=== PATIENT | male | born 1960 | race Caucasian/White ===

== ENCOUNTER → 2022-07-01 | Day surgery (SDC) | payer BC ==
[2022-06-16 11:10] LABS: Absolute Lymphocytes (CBC) 1.5 K/uL (0.7-4.9); Hematocrit 33.6 % (39.6-49.0); Lymphocytes % 20.9 % (15.3-44.8); MCV 75.5 fL (80-100); MPV 7.6 fL (7.6-11.3); RBC Red Blood Cell Count 4.45 M/uL (4.33-5.43)
[2022-06-16 11:26] LABS: Potassium 4.4 mEq/L (3.5-5.1)
--- NOTE | 2022-06-16 12:11 | RAD REPORT ---
EXAM DESCRIPTION: Xochitl Dsouza (2 Views)06/16/2022 11:23 am CLINICAL HISTORY: Cough/renal cell carcinoma COMPARISON: May 2022 FINDINGS: The lungs appear clear of acute infiltrate. The heart is normal size IMPRESSION: No acute abnormalities displayed
[2022-06-16 12:32] LABS: Protime INR 1.1
--- NOTE | 2022-06-16 12:49 | EKG ---
Test Date: 2022-06-16 Test Time: 10:37:25 Assistant Cook: PIEDAD MEASUREMENT RESULTS: Intervals: Rate: 83 IN: 128 QRSD: 82 QT: 384 QTc: 451 [place]: P: 77 IN: 128 QRS: 46 T: 52 INTERPRETIVE STATEMENTS: Normal sinus rhythm Normal ECG No previous ECG available for comparison Electronically Signed On 06-16-22 12:49:02 CDT by Bert Copeland
[2022-06-30 08:16] LABS: SARS-CoV-2 Antigen Rapid Res Negative (Negative)
[~2022-07-01] MED LIST: ACETAMINOPHEN 500 MG TAB PO PRN; CEFAZOLIN SODIUM 1 GM/VIAL ONE; ESMOLOL HCL 10 ML IV ONE; FENTANYL CITR 250 MCG/5 ML ONE; FUROSEMIDE 40 MG/4 ML VIAL ONE; GLYCOPYRROLATE 0.2 MG/ML SYR ONE; KETAMINE HCL IN 0.9 % NACL 50 MG/5 ML SYRINGE IV ONE; LIDOCAINE 2% MPF 5 ML VIAL ONE; LIDOCAINE JELLY 2% 5 ML SYRINGE TOP ONE; MIDAZOLAM HCL 2 MG/2 ML INJ ONE; NEOSTIGMINE 1 MG/ML -10 ML VIAL ONE; ONDANSETRON 4 MG/2 ML VIAL ONE; PROMETHAZINE INJ 25 MG/ML AMP ONE; ROCURONIUM 50 MG/5 ML VIAL IV ONE; Ringers Lactate 1,000 ML IV ONE; TRAMADOL 37.5mg/APAP 325mg PER TAB PO ONE; VECURONIUM 10 MG/VIAL IV ONE; propofoL 200 MG/20 ML VIAL IV ONE
[2022-07-01] MEDS: HYDROMORPHONE HCL 1 MG/ML INJ ONE ×4 (13:00→13:59)
--- NOTE | 2022-07-01 15:58 | OP ---
Surgeon: GISELLA CARDONA Preoperative Diagnosis: Right renal mass 10 x 8 x 8 cm. Postoperative Diagnoses: 1.Right renal mass 10 x 8 x 8 cm. 2.Umbilical hernia. Principal Procedures: 1.Laparoscopic right radical nephrectomy. 2.Umbilical herniorrhaphy. Indication For Procedure: Mr. Fair presented to the [facility]rology [facility] with a history of asymptomatic gross hematuria and underwent evaluation eventually identifying the presence of a large, 10 x 8 x 8 c m right renal mass. The mass was heterogeneous containing calcifications as well as areas of necrosi s. He was counseled on the potential that the mass could represent an oncocytoma and offered a biops y, but ultimately given the approximately 90% likelihood that this represented renal cell carcinoma, he elected to forego biopsy and proceed with surgical removal. Procedure In Detail: The patient was consented in the preoperative holding area before being transfe rred to the operative suite where general anesthesia was induced. An OG tube was placed for gastric decompression. Pneumo boots were placed for DVT prophylaxis. Ancef was provided for antimicrobial p rophylaxis. He was placed in the modified flank position with his right side up, padded and secured to the table appropriately. An axillary roll was placed beneath his left axilla. A urethral Alegria c atheter was placed prior to positioning by Nursing. His abdomen was shaved, prepped with ChloraPrep, and draped in standard fashion. The case was begun using a Veress needle to gain access into the pe ritoneum in the right upper midline. When appropriate insufflation pressures were achieved after asp iration and irrigation revealed absence of blood or succus and appropriate drop of saline with free f low into the peritoneum, the gas was connected at low flow and eventually increased to high flow and did distend his abdomen nicely to 15 mmHg pressure. I then marked out a standard two-arm laparoscopi c approach in addition to a camera port incision, which I elected to place through an umbilical herni a that was preexisting. So initially, a 5 mm trocar was placed in the upper midline subxiphoid, and once the trocar was successfully placed into his abdominal cavity, I surveyed the cavity and there we re no significant intra-abdominal adhesions. I thus placed the 12 mm trocar through the umbilical he rnia after instilling subcutaneous Marcaine in that area as well as the other areas of the proposed t rocar sites. An additional 12 mm trocar was placed in the right lateral quadrant, a liver retractor was placed via the left upper quadrant via a 5 mm trocar placed in that location. A locking grasper was used to elevate the lower border of the liver and I was able to visualize the mass of the kidney bulging beneath Gerota fascia. The case was begun using [place] graspers and LigaSure to grasp and divide the layers of the mesentery consistent with the line of Toldt. This was divided and both laye rs of mesentery were elevated off Gerota fascia taking the line of Toldt all the way down to the pelv ic vasculature. Once the colon was completely reflected, I then proceeded to cauterize the duodenum and then once the duodenum was sharply cauterized, then we turned our attention to the tail of Gerota where the psoas musculature was easily visible. I identified the ureter and eventually dissected th e gonadal vessels, sparing them throughout the entirety of the procedure. The ureter was f rom the gonadal vessels and elevated above them, and I then dissected posteriorly and superiorly towa rd the hilum of the kidney. Eventually the renal vein was encountered, and beneath it, the renal art gayle was encountered along with its branches. I carefully dissected the space between the artery and the vein and then utilized a DIOGO with an endovascular load to ligate and divide the renal artery. I then used a separate DIOGO to ligate the renal vein. Once these were both ligated and divided, I then continued to dissect superiorly sparing the adrenal and dissecting along the superomedial portion of the kidney until I was able to free the entirety of the Gerota and the kidney from beneath the unders urface of the liver. This was taken to the superior lateral sidewall and then I began dissecting the peritoneum along the lateral border of the Gerota. I then turned my attention to the tail of Gerota where I elevated the ureter and utilized metal clips to ligate the ureter before dividing it sharply with the LigaSure. The tail of Gerota was divided, and then I divided the peritoneum laterally unti l I met the point of dissection superiorly. The remainder of the fat and fascia to bring all of Adan ta along with the kidney and tumor was dissected free from the sidewall as well as posteriorly along the psoas muscle until the kidney was completely freed. I then decompressed the abdomen by decreasin g the pressure to 8 mmHg and surveyed the space for any sign of bleeding. The artery and vein stumps were visible and were nicely ligated. I applied a couple of metal clips in addition for added secur ity. With no sign of bleeding, I then placed the kidney and tumor into a 15 cm EndoCatch bag and the n utilized a 0 Vicryl Jorge-Robert to close the 12 mm right lateral quadrant trocar site. Once th is was closed, we then removed the 5 mm trocars under direct vision and delivered the string of the E ndoCatch bag out of the umbilical trocar site. At this point, I instilled Marcaine subcutaneously al hair a lower midline incision extending from the umbilical incision and just big enough to be able to remove the kidney in its entirety within the EndoCatch bag. Once the kidney was removed, I then clos ed the fascia using a running looped #1 PDS. In the process of closing the fascial incision, I reapp roximated the hernia site to eliminate the umbilical hernia. Once the umbilical hernia was closed in concert with the lower midline incision, and the entirety of the incision was nicely reapproximated, I then irrigated all of the incisions copiously using saline and then again instilled 0.25% Marcaine into each of the incisions. The skin was then closed using 4-0 Monocryl in a running subcuticular f ashion and Dermabond was used to seal the skin. The patient was then taken out of the modified flank position, awakened from general anesthesia, transferred to a stretcher, and then transferred to the recovery room in good condition. Complications: None. Discharge Disposition: Given the brevity of the case, he certainly would be eligible for discharge h ome if he does well in recovery. Otherwise, we will admit him for observation overnight and plan to discharge him tomorrow. MICAELA/MODL Voice ID: [id number] Report ID: [id number]
[2022-07-01 18:10] VITALS: BP 140/82; TEMP 98; O2SAT 98
== END | disposition home or self-care (01) ==
LOC: OR 08:15
PROVIDERS: ATTEND Urology
PROC: 0TT04ZZ Resection of Right Kidney, Percutaneous Endoscopic Approach (ICD-10-PCS; principal; 2022-07-01 09:30)
DX: C64.1 Malignant neoplasm of right kidney, except renal pelvis (principal); K42.9 Umbilical hernia without obstruction or gangrene
CPT/HCPCS: 50545; 93005; 87088; 85025; 87086; 80048; 36415 ×2; 86900; 86850; 85610; 86901; 88307; 71046; 87811; J2550; J2704; J2710; J1940; J2001; J2250; J3010 ×2; J1170 ×2; J2405 ×2; J7120 ×4; J0690 ×2

== ENCOUNTER 2023-10-16 01:13 | Emergency (ER) | payer BC ==
--- NOTE | 2023-10-16 01:55 | ER ---
Nurse's Notes [facility] [place] Name: Vicente Fair Age: 63 yrs Sex: Male : 1960 Arrival Date: 10/16/2023 Time: 01:13 Bed 5 Private MD: Diagnosis: Retention of urine, unspecified Presentation: 10/15 01:37 Chief complaint: Patient states: I have not urinated since 11 am yesterday. I had a jb4 urolift on Thursday and I was having a slight dribble for a while and that stopped. Coronavirus screen: At this time, the client does not indicate any symptoms associated with coronavirus-19. Ebola Screen: No symptoms or risks identified at this time. Initial Sepsis Screen: Does the patient meet any 2 criteria? No. Patient's initial sepsis screen is negative. Does the patient have a suspected source of infection? No. Patient's initial sepsis screen is negative. Risk Assessment: Do you want to hurt yourself or someone else? Patient reports no desire to harm self or others. Onset of symptoms was October 16, 2023. Transition of care: patient was not received from another setting of care. 01:37 Method Of Arrival: Ambulatory jb4 01:37 Acuity: BEAU 3 jb4 Historical: - Allergies: 01:40 No Known Allergies; jb4 - PMHx: 01:40 Kidney tumor; jb4 - PSHx: 01:40 Kidney removal; Urolift; jb4 - Immunization history:: Adult Immunizations up to date. - Infectious Disease History:: Denies. - Social history:: Smoking status: Patient denies any tobacco usage or history of. Screenin:52 [facility] ED Fall Risk Assessment (Adult) History of falling in the last 3 months, tm6 including since admission No falls in past 3 months (0 pts) Confusion or Disorientation No (0 pts) Intoxicated or Sedated No (0 pts) Impaired Gait No (0 pts) Mobility Assist Device Used No (0 pt) Altered Elimination No (0 pt) Score/Fall Risk Level 0 - 2 = Low Risk Oriented to surroundings, Maintained a safe environment, Educated pt \T\ family on fall prevention, incl call for assistance when getting out of bed. Abuse screen: Denies threats or abuse. Denies injuries from another. Nutritional screening: No deficits noted. Tuberculosis screening: No symptoms or risk factors identified. Assessment: 01:52 General: Appears uncomfortable, Behavior is calm, cooperative. Pain: Complains of pain tm6 in suprapubic area. Neuro: Level of Consciousness is awake, alert, obeys commands, Oriented to person, place, time, situation. Cardiovascular: No deficits noted. Patient's skin is warm and dry. Respiratory: Airway is patent Respiratory effort is even, unlabored, Respiratory pattern is regular, symmetrical. GI: No signs and/or symptoms were reported involving the gastrointestinal system. Abdomen is flat, non-distended. : Genitalia appear normal Reports inability to void, since 1100 10/15/23. EENT: No signs and/or symptoms were reported regarding the EENT system. Derm: No signs and/or symptoms reported regarding the dermatologic system. Musculoskeletal: No signs and/or symptoms reported regarding the musculoskeletal system. 02:33 Reassessment: Patient appears in no apparent distress at this time. Patient and/or tm6 family updated on plan of care and expected duration. Pain level reassessed. Patient is alert, oriented x 3, equal unlabored respirations, skin warm/dry/pink. Vital Signs: 01:37 BP 145 / 102; Pulse 90; Resp 16; Temp 98.1(O); Pulse Ox 95% on R/A; Weight 73.48 kg jb4 (R); Height 5 ft. 11 in. (R); Pain 10/10; 02:33 BP 129 / 72; Pulse 80; Resp 19; Temp 98.1; Pulse Ox 95% on R/A; Pain 0/10; tm6 01:37 Body Mass Index 22.59 (73.48 kg, 180.34 cm) jb4 01:37 Pain Scale: Adult jb4 02:33 Pain Scale: Adult tm6 ED Course: 01:18 Patient arrived in ED. gm2 01:22 Say Meyers MD is Attending Physician. ec2 01:40 Triage completed. jb4 01:40 Arm band placed on right wrist. jb4 01:50 Sharonda Rangel RN is Primary Nurse. tm6 01:51 Bailey cath inserted, using sterile technique, 16 Fr., by il, balloon inflated, to tm6 gravity drainage, clamped. urine specimen collected. Patient tolerated well. 01:52 Patient has correct armband on for positive identification. Placed in gown. Bed in low tm6 position. Call light in reach. Side rails up X2. Provided Education on: use of call feldman. Client placed on continuous cardiac and pulse oximetry monitoring. NIBP monitoring applied. Pulse ox on. NIBP on. Door closed. Noise minimized. Warm blanket given. Pillow given. 01:54 Lupillo Hall MD is Referral Physician. ec2 02:34 No provider procedures requiring assistance completed. Patient did not have IV access tm6 during this emergency room visit. Administered Medications: No medications were administered Medication: 01:52 VIS not applicable for this client. tm6 Output: 02:33 Urine: 800ml (Bailey); Total: 800ml. tm6 Outcome: :54 Discharge ordered by . ec2 02:34 Discharged to home ambulatory, tm6 02:34 Condition: stable 02:34 Discharge instructions given to patient, Instructed on discharge instructions, follow up and referral plans. medication usage, bailey leg bag use Demonstrated understanding of instructions, follow-up care, bailey leg bag Prescriptions given X 1, 02:35 Patient left the ED. tm6 Signatures: Vicente Garcia, RN RN jb4 Say Meyers MD MD ec2 Rylie White 2 Sharonda Rangel RN RN tm6
--- NOTE | 2023-10-16 01:55 | EDPHYS ---
Physician Documentation [facility] Name: Vicente Fair Age: 63 yrs Sex: Male : 1960 Arrival Date: 10/16/2023 Time: 01:13 Bed 5 Private MD: ED Physician Say Meyers HPI: 10/15 01:40 This 63 yrs old Male presents to ER via Unassigned with complaints of Urinary ec2 Retention. 01:40 Patient arrives today due to concern for urinary retention. States that he has not ec2 urinated since approximately 14 hours prior to arrival. States he had a recent UroLift the other day.. Historical: - Allergies: 01:40 No Known Allergies; jb4 - PMHx: 01:40 Kidney tumor; jb4 - PSHx: 01:40 Kidney removal; Urolift; jb4 - Immunization history:: Adult Immunizations up to date. - Infectious Disease History:: Denies. - Social history:: Smoking status: Patient denies any tobacco usage or history of. ROS: 01:40 Constitutional: as per hpi ec2 Exam: 01:40 Constitutional: GEN: NAD Head: atraumatic Eyes: EOMI Ears: External ears are ec2 normal. CV: regular rate LUNGS: no respiratory distress ABD: non-distended SKIN: no evidence of rashes MSK: no evidence of trauma NEURO: moves all extremities equally Vital Signs: 01:37 BP 145 / 102; Pulse 90; Resp 16; Temp 98.1(O); Pulse Ox 95% on R/A; Weight 73.48 kg jb4 (R); Height 5 ft. 11 in. (R); Pain 10/10; 02:33 BP 129 / 72; Pulse 80; Resp 19; Temp 98.1; Pulse Ox 95% on R/A; Pain 0/10; tm6 01:37 Body Mass Index 22.59 (73.48 kg, 180.34 cm) jb4 01:37 Pain Scale: Adult jb4 02:33 Pain Scale: Adult tm6 MDM: 01:23 Patient medically screened. ec2 01:40 Data reviewed: vital signs. ED course: Patient arrives today for evaluation of ec2 suprapubic discomfort in setting of urinary retention. Examination remarkable for nontoxic dividual. Will place Alegria catheter.. 10/15 01:23 Order name: BEN; Complete Time: 02:18 ec2 10/15 01:23 Order name: Alegria; Complete Time: 01:51 ec2 Administered Medications: No medications were administered Disposition Summary: 10/16/23 01:54 Discharge Ordered Notes: Location: Home ec2 Condition: Stable ec2 Diagnosis - Retention of urine, unspecified ec2 Followup: ec2 - With: Private Physician - When: - Reason: Re-evaluation by your physician Followup: ec2 - With: Lupillo Hall MD - When: - Reason: Recheck today's complaints Discharge Instructions: - Discharge Summary Sheet ec2 - Acute Urinary Retention, Male ec2 Forms: - Medication Reconciliation Form ec2 - Antibiotic Education ec2 - Prescription Opioid Use ec2 - Patient Portal Instructions ec2 - Leadership Thank You Letter ec2 Prescriptions: - Bactrim DS 800-160 mg Oral Tablet - take 1 tablet ORAL route every 12 hours for 7 days; 14 tablet; Refills: 0, ec2 Product Selection Permitted Signatures: Dispatcher [employer] Vicente Martinez RN RN jb4 Say Meyers MD MD ec2 Corrections: (The following items were deleted from the chart) 01:23 01:23 Urinalysis W/Microscopic+U.LAB.BRZ ordered. GIANA FARIA
[2023-10-16 02:17] LABS: Specific Gravity 1.016 (1.005-1.030); Sqamous Epithelial None Seen /HPF (None Seen); Transitional Epithelial <5 /HPF (None Seen); Urine Bacteria None Seen /HPF (<20); Urine Bilirubin 1+ (Negative); Urine Blood 3+ (Negative); Urine Clarity Turbid (Clear); Urine Color Dark-Yellow (Yellow); Urine Culture Reflex Order NOT NEEDED; Urine Glucose NEGATIVE (Negative); Urine Ketones NEGATIVE (Negative); Urine Micro Reflex YN NO BILL MICROSCOPIC; Urine Mucus Slight /HPF (None Seen); Urine Nitrite 1+ (Negative); Urine Protein TRACE (Negative); Urine RBC >50 /HPF (None Seen); Urine Urobilinogen 2+ (Normal); Urine WBC <5 /HPF (<5)
[2023-10-16 02:46] VITALS: TEMP 98.1; O2SAT 95
[2023-10-16 02:47] VITALS: BP 129/72
== END 2023-10-16 02:35 | disposition home or self-care (01) ==
LOC: ER 01:13
DX: R33.9 Retention of urine, unspecified (principal); Z98.890 Other specified postprocedural states
CPT/HCPCS: 51702; 81001; 99284